=== PATIENT | female | born 1965 | race American Indian/Alaskan Native ===

== ENCOUNTER 2020-10-15 23:58 | Emergency (ER) | payer SELFPAY ==
[2020-10-16] MEDS ORDERED: ASPIRIN 325 MG TAB PO ONE
[2020-10-16 00:25] LABS: Basophils % (Auto) 0.5 % (0.0-1.8); Eosinophils # (Auto) 0.1 K/mm3 (0.0-0.4); Eosinophils % (Auto) 1.1 % (0.0-4.3); Hematocrit 42.7 % (30.3-42.9); Hemoglobin 14.4 gm/dl (10.1-14.3); Lymphocytes # (Auto) 2.5 K/mm3 (1.2-5.4); Lymphocytes % (Auto) 36.5 % (13.4-35.0); Mean Corpuscular HGB Conc 34 % (30-34); Mean Corpuscular Volume 92 fl (79-97); Monocytes # (Auto) 0.5 K/mm3 (0.0-0.8); Monocytes % (Auto) 7.1 % (0.0-7.3); Platelet Count 240 K/mm3 (140-440); Red Blood Count 4.66 M/mm3 (3.65-5.03); Red Cell Distribution Width 13.5 % (13.2-15.2)
[2020-10-16 00:46] LABS: Blood Urea Nitrogen 9 mg/dL (7-17); Calcium 9.3 mg/dL (8.4-10.2); Hemolysis Index 45
[2020-10-16 00:48] LABS: BUN/Creatinine Ratio 13
--- NOTE | 2020-10-16 00:50 | XRay Report ---
CHEST 1 VIEW 10/15/2020 11:39 PM INDICATION / CLINICAL INFORMATION: Chest Pain. COMPARISON: None available. FINDINGS: SUPPORT DEVICES: None. HEART / MEDIASTINUM: No significant abnormality. LUNGS / PLEURA: No significant pulmonary or pleural abnormality. No pneumothorax. ADDITIONAL FINDINGS: No significant additional findings. IMPRESSION: 1. No acute findings. Signer Name: Mitch Sterling MD Signed: 10/16/2020 12:46 AM Workstation Name: [id number]
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
[2020-10-16] MEDS ORDERED: KETOROLAC 30 MG/1 ML INJ IM ONE (01:17)
[2020-10-16 02:32] VITALS: BP 132/91
== END 2020-10-16 03:13 | disposition left against medical advice (07) ==
LOC: ED 23:58
DX: R07.89 Other chest pain (principal); I10 Essential (primary) hypertension; F17.200 Nicotine dependence, unspecified, uncomplicated; Z90.710 Acquired absence of both cervix and uterus; Z88.2 Allergy status to sulfonamides
CPT/HCPCS: 36415; 71045; 80048; 84484; 85025; 93005; J1885

== ENCOUNTER 2021-02-07 14:25 | Emergency (ER) | payer SELFPAY ==
[2021-02-07 15:31] VITALS: BP 130/86
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
== END 2021-02-07 17:19 | disposition home or self-care (01) ==
LOC: ED 14:25
DX: S20.212A Contusion of left front wall of thorax, initial encounter (principal); I10 Essential (primary) hypertension; F17.200 Nicotine dependence, unspecified, uncomplicated; Z88.2 Allergy status to sulfonamides; Z79.899 Other long term (current) drug therapy; Z90.710 Acquired absence of both cervix and uterus; Z98.890 Other specified postprocedural states; Y04.8XXA Assault by other bodily force, initial encounter; Y93.89 Activity, other specified; Y92.89 Other specified places as the place of occurrence of the external cause; Y99.8 Other external cause status
CPT/HCPCS: 99283